=== PATIENT | male | born 1955 | race Caucasian/White ===

== ENCOUNTER → 2020-04-03 14:32 | Outpatient (REF) | payer MEDICARE, OTHER, SELFPAY | LOC: ANHLAB 14:32 | PROVIDERS: PCP Family Medicine; Visit Provider Nurse Practitioner | DX: C44.519 Basal cell carcinoma of skin of other part of trunk (principal) | CPT/HCPCS: 88305 ==

== ENCOUNTER → 2020-05-22 07:17 | Outpatient (REF) | payer MEDICARE, OTHER, SELFPAY | LOC: ANHLAB 07:17 | PROVIDERS: PCP Family Medicine; Visit Provider Nurse Practitioner | DX: C44.519 Basal cell carcinoma of skin of other part of trunk (principal) | CPT/HCPCS: 88305; 88331 ==

== ENCOUNTER 2022-03-26 15:02 | Outpatient (NON) | payer MEDICARE, OTHER, SELFPAY | END 2022-03-26 15:03 | disposition home or self-care (01) | PROVIDERS: PCP Family Medicine; Visit Provider Nurse Practitioner | DX: L81.4 Other melanin hyperpigmentation (principal) | CPT/HCPCS: 88305; 88342 ==

== ENCOUNTER 2023-03-19 00:24 | Day surgery (SDC) | payer MEDICARE, OTHER, SELFPAY ==
[2023-03-03 13:07] VITALS: BMI 33.3
--- NOTE | 2023-03-05 14:48 | PC.NURSE ---
Spoke with ___PATIENT regarding medication _PLAVIX . Pt. verbalizes understanding that the last dose of __PLAVIX is to be taken on 03/14/2023 and the Endoscopist will instruct them when to restart after the procedure.
--- NOTE | 2023-03-14 13:11 | SUR.PREOP ---
Patient called regarding upcoming procedure. Reviewed preop instructions, appointment times, and procedure prep.
--- NOTE | 2023-03-18 17:49 | P.HP_ITS ---
History of Present Illness History of Present Illness Consent: Risks, benefits, and alternatives have been discussed and questions answered. Patient agrees to proceed with procedure. Chief complaint: blood in stool Narrative: Cristobal Verde is a 67 year old male Referred for Colonoscopy due to rectal bleeding. He is last colonoscopy was 10 years ago. he had been passing red blood stools and also saw blood the toilet paper. He denies having been constipated. Denies abdominal or rectal pain. [facility] Past Medical History Medical History Heart disease Hypertension Irregular heart beat Surgical History Surgical History History of hip surgery 2015 History of knee surgery 2019 Social History Social History Smoking packs per day: 1 Smoking cigarettes per day: 20.0 Years smoked: 3 Smoking pack-years: 3.00 Smoking status: Former smoker Tobacco type: cigarettes Alcohol intake: current Drinks per week: 14 Substance use: never Substance use type: does not use Living arrangements: with family Spiritual care concerns: No Meds Home Medications and Allergies Home Medications Medication Instructions Recorded Confirmed Type flecainide 50 mg tablet 50 mg PO Q12H 04/03/20 03/19/23 History metoprolol succinate 50 mg 50 mg PO DAILY 04/03/20 03/19/23 History tablet,extended release 24 hr rosuvastatin 5 mg tablet (Crestor) 5 mg PO DAILY 05/22/20 03/19/23 History aspirin 81 mg tablet,delayed 81 mg PO DAILY 03/03/23 03/19/23 History release clopidogrel 75 mg tablet 75 mg PO DAILY 03/03/23 03/19/23 History losartan 100 1 tablet PO DAILY 03/03/23 03/19/23 History mg-hydrochlorothiazide 25 mg tablet Allergies Allergy/AdvReac Type Severity Reaction Status Date / Time Sulfa (Sulfonamide Allergy Unknown RASH Verified 03/19/23 11:05 Antibiotics) Assessment and Plan Assessment and plan (1) Blood in stool: Code(s): K92.1 - Melena Status: Acute Assessment and Plan: Colonoscopy with possible biopsy or polypectomy or cautery or injection of substances.
[2023-03-19 10:50] VITALS: BP 142/81; PULSE 79; RESP 18; TEMP 36.3; O2SAT 98; BMI 33.8
[2023-03-19] MEDS: LACTATED RINGERS 1,000 ML 150 ML IV CONT (11:23)
[2023-03-19] MEDS: AMPICILLIN 2 GM/NS 100 ML 2 GM/100 ML BAG IVPB (11:32)
--- NOTE | 2023-03-19 11:38 | WPDANESEPPF ---
Anes - Initial Pre Proc Eval Procedure: Operation Date: 03/19/23 12:30 Proposed Procedures p Colonoscopy - Javier Lopez MD Date/Time: 03/19/23 11:38 Surgeon: Javier Lopez MD Pre Op Diagnosis: blood in stool Patient Data Age: 67 Gender: M Height: 1.75 m Weight: 103.9 kg Last Vital Signs Temp 97.4 F L 03/19/23 10:50 Pulse 79 03/19/23 10:50 Resp 18 03/19/23 10:50 BP 142/81 H 03/19/23 10:50 Pulse Ox 98 03/19/23 10:50 O2 Del Method Room Air 03/19/23 10:50 Allergies Allergy/AdvReac Type Severity Reaction Status Date / Time Sulfa (Sulfonamide Allergy Unknown RASH Verified 03/19/23 11:05 Antibiotics) Home Medications Medication Instructions Recorded Confirmed Type flecainide 50 mg tablet 50 mg PO Q12H 04/03/20 03/19/23 History metoprolol succinate 50 mg 50 mg PO DAILY 04/03/20 03/19/23 History tablet,extended release 24 hr rosuvastatin 5 mg tablet (Crestor) 5 mg PO DAILY 05/22/20 03/19/23 History aspirin 81 mg tablet,delayed 81 mg PO DAILY 03/03/23 03/19/23 History release clopidogrel 75 mg tablet 75 mg PO DAILY 03/03/23 03/19/23 History losartan 100 1 tablet PO DAILY 03/03/23 03/19/23 History mg-hydrochlorothiazide 25 mg tablet Patient hx anesthesia problems: none Family hx anesthesia problems: none Results Review: All pre-operative results and documents have been reviewed as part of the pre-operative evaluation. [facility] Past Medical History Medical History Heart disease Hypertension Irregular heart beat Surgical History Surgical History History of hip surgery 2015 History of knee surgery 2019 Social History Social History Smoking packs per day: 1 Smoking cigarettes per day: 20.0 Years smoked: 3 Smoking pack-years: 3.00 Smoking status: Former smoker Tobacco type: cigarettes Alcohol intake: current Drinks per week: 14 Substance use: never Substance use type: does not use Living arrangements: with family Spiritual care concerns: No Anes - Eval Final PreProcedure Day of Procedure 03/19/23 11:38 Patient weight: obese Heart: regular rate and rhythm Lungs: clear to auscultation Airway: Mallampati scale class III Neurological: alert and oriented Last oral intake: >/= 8 hours ASA classification: III Emergent: no Anesthetic plan: proceed Anesthesia type and monitoring: general GIVS and standard monitoring Results Review: All pre-operative results and documents have been reviewed as part of the pre-operative evaluation. Informed Consent: The patient's anesthetic plan and its attendant risks and benefits were discussed with the patient/family/POA. Questions were solicited and answers provided to the satisfaction of the patient/family/POA.
[2023-03-19] MEDS: SIMETHICONE ORAL SUSPENSION 20 MG/0.3 ML 30 ML BOTTLE 0.6 ML IRRIGATION (12:47)
[2023-03-19 13:00] VITALS: BP 91/65; PULSE 69; RESP 14; O2SAT 99
[2023-03-19 13:10] VITALS: BP 136/96; PULSE 75; RESP 20; O2SAT 99
[2023-03-19 13:20] VITALS: BP 135/85; PULSE 78; RESP 18; O2SAT 99
== END 2023-03-19 13:28 | disposition home or self-care (01) ==
PROVIDERS: PCP Family Medicine; Visit Provider Internal Medicine Gastroenterology
PROC: 0DJD8ZZ Inspection of Lower Intestinal Tract, Via Natural or Artificial Opening Endoscopic (ICD-10-PCS; CPT 45378; principal; 2023-03-19 12:30)
DX: K92.1 Melena (principal); D12.5 Benign neoplasm of sigmoid colon; K64.8 Other hemorrhoids; K57.30 Diverticulosis of large intestine without perforation or abscess without bleeding; I10 Essential (primary) hypertension; E66.9 Obesity, unspecified; Z68.33 Body mass index [BMI] 33.0-33.9, adult; Z79.82 Long term (current) use of aspirin; Z79.02 Long term (current) use of antithrombotics/antiplatelets; Z98.890 Other specified postprocedural states; Z87.891 Personal history of nicotine dependence; Z86.79 Personal history of other diseases of the circulatory system
CPT/HCPCS: 45385; 88305; J0290; J2704; J7120